=== PATIENT | female | born 1995 | race Two or more races ===

== ENCOUNTER 2023-12-11 12:53 | Emergency (ER) | payer OTHER ==
[~2023-12-11] VITALS: Ht 154.9 cm; Wt 56.7 kg
[2023-12-11] MEDS ORDERED: DEXAMETHASONE SODIUM PHOSPHATE 4 MG/ML VIAL IM STA (15:49)
[2023-12-11] MEDS ORDERED: ORPHENADRINE CITRATE 30 MG/ML AMPUL IM STA (15:49)
== END 2023-12-11 17:46 | disposition home or self-care (01) ==
LOC: ER 12:55
DX: S93.401A Sprain of unspecified ligament of right ankle, initial encounter (principal); W10.8XXA Fall (on) (from) other stairs and steps, initial encounter; Y93.89 Activity, other specified; Y92.89 Other specified places as the place of occurrence of the external cause; Y99.9 Unspecified external cause status